=== PATIENT | male | born 1965 | race Caucasian/White ===

== ENCOUNTER 2018-04-10 15:59 | Emergency (ER) | payer MEDICAID, SELFPAY ==
[2018-04-10 15:59] VITALS: BP 155/85; PULSE 109; RESP 16; TEMP 36.6; O2SAT 99; BMI 29.7
--- NOTE | 2018-04-10 16:15 | ED.VISSUMM ---
- ER Visit Summary Date of Service: 04/10/18 Chief Complaint: Right arm pain and swelling. Right finger wound History of Present Illness: The patient is a 52 M who has swelling on the right biceps area. It has been there for 3 days. He denies any specific injury but noted when he was folding close that his right bicep was larger than the left. 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 He states he does feel kind of weak in the right arm but does not want to use it much because he fears he may make it worse. He also has glass in the right hand and right index finger. He has been picking it out with a tweezer for multiple weeks. He states that he was working outside and fell to the ground. He has not had any drainage on any of these areas. Physical Examination: Vital signs reviewed. Right arm exam reveals a right bicep which is larger than the left. It is mildly tender over the distal bicep down into the tendon area. He is weaker on the right. He states he does not want to move it hard because he fears it may tear. There is no fusiform swelling or erythema. He has good distal pulses. He has a wound on the right index finger from picking at it with a tweezers. There is no drainage or erythema. No foreign bodies are seen or felt. Test Results: None performed Emergency Department Course and Treatment: Feel the patient likely has a partial biceps tendon tear. The right bicep does appear to be larger. There is no signs of cellulitis. I do not feel that this is a DVT as he has no diffuse swelling. Is localized right over the bicep muscle. I will place him in a sling. For the glass in the hand, feel x-rays are needed as I do not feel any foreign bodies. He has picked most of the top layer of skin off. I encouraged him not to do this. I will give him some bacitracin to place on these areas. There is no signs of erythema or cellulitis. No signs of tenosynovitis. Patient will be given orthopedic follow-up Treatment Plan: [] Disposition: Discharge Impression: Right partial biceps tendon tear, right finger wound This note was generated with [employer]ation software. It may contain incorrect words, spelling, and punctuation that were not noted in review of the chart prior to signing ED Disposition - Plan for ED Patient: Chief Complaint: Upper Extremity Injury Referrals: Alexis Newby MD [Primary Care Provider] -
--- NOTE | 2018-04-10 16:18 | ED.DEP ---
ED Disposition - Plan for ED Patient: Disposition: Home or Assisted Living Chief Complaint: Upper Extremity Injury Instructions: ED Sling Prescriptions: Bacitracin 500 units TOPICAL BID #20 packet Referrals: Alexis Newby MD [Primary Care Provider] -
== END 2018-04-10 16:42 | disposition home or self-care (01) ==
PROVIDERS: Emergency Provider Emergency Medicine; Family Provider Internal Medicine; PCP Internal Medicine
DX: S46.211A Strain of muscle, fascia and tendon of other parts of biceps, right arm, initial encounter (principal); X58.XXXA Exposure to other specified factors, initial encounter; Y93.9 Activity, unspecified; Y92.9 Unspecified place or not applicable; S60.940A Unspecified superficial injury of right index finger, initial encounter; Z72.0 Tobacco use
CPT/HCPCS: 99283

== ENCOUNTER 2019-02-28 18:36 | Emergency (ER) | payer MEDICAID, SELFPAY ==
[2019-02-28 18:37] VITALS: BP 133/79; PULSE 83; RESP 18; TEMP 36.7; O2SAT 95; BMI 29.7
--- NOTE | 2019-02-28 18:56 | US_ITS ---
HISTORY:RT LOWER LATERAL CALF PAIN AND SWELLING X 4 DAYS US Venous Duplex LE Unilat / Limited # of images including paperwork:19 Comparison: none Technique: Color flow and Doppler analysis of theRight lower extremity Findings: There is satisfactory visualization of the Right common femoral,l femoral, popliteal, and posterior tibial veins. The veins compress satisfactorily and there is satisfactory pulsatility and augmentation noted. US/Venous Duplex Imag/Limited/Uni IMPRESSION: No evidence of deep venous thrombosis in theRight lower extremity at 1938 Reported and signed by: Silvina Gloria DO Electronically Signed: Silvina Gloria DO at 19:37 EDT Tel , Service support ,
--- NOTE | 2019-02-28 19:31 | ED.VISSUMM ---
- ER Visit Summary Date of Service: 02/28/19 Chief Complaint: [Right leg discomfort] History of Present Illness: The patient is a 53 M presents the emergency department discomfort in his right leg out of the ordinary for the last week. Patient states that he always has some leg pain as he has a history of some chronic sciatica and takes gabapentin for it. Patient states that over the last week its just felt different and that been somewhat numb and tingly and feels like his calf is more swollen than usual. He was advised by friends that he could have a blood clot and to get evaluated. He denies any recent travel or surgery. He has no history of DVT. He denies any chest pain or shortness of breath. He denies any injury to the leg.] Physical Examination: [HEENT-PERRLA, EOMI. Cranial nerves II through XII grossly intact. TMs clear. Mucous membranes moist. No adenopathy. Cardiovascular-regular rate and rhythm without murmur or ectopy Lungs-clear to auscultation, chest wall stable without crepitus or subcu emphysema Abdomen-normoactive bowel sounds, soft, nontender, no rebound or rigidity, no peritoneal signs. Extremities-intact ?4, normal range of motion, normal pulses, atraumatic. Right leg-I do not appreciate any significant edema to the leg. No ropes or cords are palpated. Negative Homans sign. There is no erythema or cellulitis noted. Patient has normal popliteal as well as dorsal pedal and posterior tibial pulses. Patient has normal cap refill. Patient has negative straight leg raises. Deep tendon reflexes are plus 2 out of 4 bilaterally at the patella and Achilles.] Test Results: [Venous duplex of the right lower extremity obtained was negative for DVT] Emergency Department Course and Treatment: [None] Treatment Plan: [Patient follow-up with primary care physician 5 to 7 days. Patient advised to return if worsening pain, weakness, or conditions worsen anyway.] Disposition: [Discharged home in stable condition.] Impression: [Right leg pain-etiology uncertain] This note was generated with [employer] software. It may contain incorrect words, spelling, and punctuation that were not noted in review of the chart prior to signing ED Disposition - Plan for ED Patient: Referrals: Alexis Newby MD [Primary Care Provider] -
--- NOTE | 2019-02-28 19:35 | ED.DEP ---
ED Disposition - Plan for ED Patient: Instructions: ED Sciatica Referrals: Alexis Newby MD [Primary Care Provider] - 5-7 Days
[2019-02-28 19:45] VITALS: PULSE 88; RESP 16; O2SAT 98
== END 2019-02-28 19:46 | disposition home or self-care (01) ==
LOC: ED 19:08
PROVIDERS: Emergency Provider Emergency Medicine; Family Provider Internal Medicine; PCP Internal Medicine
DX: M79.604 Pain in right leg (principal); M54.30 Sciatica, unspecified side; I10 Essential (primary) hypertension; Z72.0 Tobacco use
CPT/HCPCS: 93971; 99282

== ENCOUNTER 2019-04-20 12:51 | Observation (INO) | payer MEDICAID, SELFPAY ==
[2019-04-20 12:52] VITALS: BP 145/87; PULSE 112; RESP 24; TEMP 36.8; O2SAT 99; BMI 27.8
--- NOTE | 2019-04-20 13:30 | RAD_ITS ---
STUDY: X-RAY - LEFT KNEE REASON FOR EXAM: Male, 53 years old. Several day history of knee pain. No history of trauma. TECHNIQUE: 4 view(s) of the knee. COMPARISON: None. FINDINGS: Normal visualized distal femur. Normal visualized proximal tibia and fibula. Normal proximal tibiofibular articulation. Normal medial femorotibial compartment. Normal lateral femorotibial compartment. Normal patellofemoral articulation. The soft tissue structures are unremarkable. RAD/Knee 4 or More Views IMPRESSION: Normal x-ray examination of the knee. Electronically Signed: Kev Hopkins, at 14:22 EDT , Service support ,
[2019-04-20] MEDS: HYDROmorphone 1 MG/ML Syringe IV ×2 (13:46→18:24)
[2019-04-20] MEDS: Ondansetron 4 MG/2 ML Vial IV (13:46)
[2019-04-20 14:09] LABS: Absolute Lymphocyte Count 0.77 X10^3/uL (0.83-4.51); Absolute Neutrophil Count 4.3 X10^3/uL (2.0-7.7); Basophil# 0.02 X10^3/uL; Basophil% 0.4 % (0-1); Eosinophil# 0.03 X10^3/uL; Eosinophils% 0.5 % (0-5); Hematocrit 46.1 % (40-54); Hemoglobin 15.7 g/dL (13.0-16.5); Lymphocyte # 0.77 X10^3/ul (4.0); Mean Corp Hgb Conc 34.1 g/dL (32-36); Mean Corpuscular Hgb 30.2 pg (27.0-32.0); Mean Corpuscular Volume 88.7 fL (80-94); Mean Platelet Vol. 9.8 fl (6.2-12.0); Monocyte# 0.34 X10^3/uL; Monocyte% 6.2 % (0-10); NRBC Flagged by Analyzer 0 % (0-5); Neutrophil # 4.34 X10^3/uL (2.7-7.7); Neutrophil % 78.7 % (47-70); Platelet Count 247 K/mm3 (150-450); RBC Distribution Width CV 12.1 % (11.6-14.6); RBC Distribution Width SD 39.4 fl (35.1-43.9); White Blood Count 5.5 K/mm3 (4.4-11.0)
[2019-04-20 14:15] LABS: Erythrocyte Sedimentation Rate 14 mm/hr (0-20)
[2019-04-20 14:21] LABS: Anion Gap 7 (5-15); BUN 18 mg/dL (7-18); BUN/Creat Ratio 19.5 RATIO (10-20); Calcium,Total 8.8 mg/dL (8.5-10.1); Chloride 105 mmol/L (98-107); Creatinine, Serum 0.92 mg/dL (0.70-1.30); EST Glomerular Filtration Rate 91 mL/min (>60); Est Glom Filt Rate - Afr Amer 110 mL/min (>60); Estimated Creatinine Clearance 100.04 ml/min; Glucose 110 mg/dL (74-106); Potassium 3.9 mmol/L (3.5-5.1); Sodium Level 140 mmol/L (136-145)
[2019-04-20 14:28] LABS: Pathologist Comment May follow
[2019-04-20 16:02] LABS: RBC /Synovial Fluid 0.044 10^6/uL (0); Synovial Fld Polynuclear WBC # 0.094 10^3/uL
--- NOTE | 2019-04-20 16:04 | ED.VISSUMM ---
- ER Visit Summary Date of Service: 04/20/19 Chief Complaint: Left knee pain History of Present Illness: The patient is a 53 M with left knee pain for 2 days. Patient feels like his knee is on fire. Pain is severe. Worse with use and weightbearing. He never had anything like this before. He noticed some abrasions to the area and some redness laterally but has no other associated symptoms. Physical Examination: Afebrile and vital signs unremarkable except for heart rate of 112 and respiratory rate of 24. Left knee shows some lateral erythema. It is warm and slightly swollen. Pain with any range of motion. Neurovascular intact distally. No laxity. He has some anterior abrasions. Test Results: X-ray unremarkable. White count normal. BMP unremarkable. ESR 14 and CRP 31. Arthrocentesis results are pending. Emergency Department Course and Treatment: Patient had x-rays, labs, and arthrocentesis. He was evaluated by Dr. Boggs. She did not feel that his exam was consistent with a septic joint, but I am concerned that the patient is having severe pain. At the time of this dictation, I am awaiting results of crystal analysis, culture, and cell count. Dr. Denise will check the results. If it appears to be a septic joint, he will need surgery. If this is gout or just simply cellulitis, Dr. Denise will reassess. I suspect he may need hospitalization for observation for intractable pain. If that is the case, Dr. Boggs may be amenable to observation. Results and disposition are pending. Treatment Plan: As above Disposition: Pending Impression: 1. Left knee pain This note was generated with [employer] software. It may contain incorrect words, spelling, and punctuation that were not noted in review of the chart prior to signing ED Disposition - Plan for ED Patient: Referrals: Alexis Newby MD [Primary Care Provider] -
[2019-04-20 17:47] LABS: Lymph 10 %; Monocyte /Synovial Fluid 14 %; Neutrophil 65 % (0-25); Other Cell /Synovial Fluid 11 %
[2019-04-20 17:48] LABS: AUTO B FLUID DILUENT BKGD CT WBC <0.1 RBC <0.01 (W<.1,R<.01); Source / Synovial Fluid KNEE; Source- Body Fluid SYNOVIAL
[2019-04-20 17:49] LABS: Appearance /Synovial Fluid Cloudy (CLEAR); Body Fluid QC Type(s) BF1Q,BF2Q; Color / Synovial Fluid Red (Pale Yellow)
[2019-04-20 18:26] VITALS: BP 133/82; PULSE 80; RESP 20; O2SAT 95
[2019-04-20 20:17] VITALS: BMI 28.1
[2019-04-20 20:26] VITALS: BMI 28.1
[2019-04-20 20:29] VITALS: BP 140/97; PULSE 97; RESP 16; TEMP 36.6; O2SAT 97
[2019-04-20] MEDS: Cefazolin 2 GM in 0.9% Normal Saline 100 ML IV (21:07)
[2019-04-20] MEDS: Gabapentin 600 MG Tablet PO (21:07)
[2019-04-20] MEDS: Doxycycline 100 MG CAPSULE PO (21:07)
[2019-04-20] MEDS: cycloBENZAPRine HCl 10 MG Tablet PO (22:44)
[2019-04-20] MEDS: Ketorolac 30 MG/ML Syringe IV (23:04)
[2019-04-21 02:31] VITALS: BP 124/84; PULSE 76; RESP 16; TEMP 36.6; O2SAT 100
[2019-04-21] MEDS: Cefazolin 2 GM in 0.9% Normal Saline 100 ML IV ×3 (05:49→21:12)
[2019-04-21] MEDS: Ketorolac 30 MG/ML Syringe IV ×2 (05:50→12:58)
[2019-04-21] MEDS: 0.9% NaCl Peripheral Flush Adult/Peds IV ×3 (05:50→14:08)
[2019-04-21] MEDS: Gabapentin 600 MG Tablet PO ×3 (05:50→21:11)
[2019-04-21 08:45] VITALS: BP 126/73; PULSE 126; RESP 18; TEMP 37.3; O2SAT 97
[2019-04-21] MEDS: cycloBENZAPRine HCl 10 MG Tablet PO (08:54)
[2019-04-21] MEDS: DULoxetine Hcl 30 MG Capsule PO (08:55)
[2019-04-21] MEDS: Doxycycline 100 MG CAPSULE PO ×2 (08:55→21:11)
[2019-04-21] MEDS: hydroCHLOROthiazide 6.25mg TAB 6.25 MG PO (08:56)
[2019-04-21] MEDS: Bisoprolol Fumarate 5 MG Tablet PO (08:56)
[2019-04-21] MEDS: Enoxaparin 40 MG/0.4 ML Syringe SC (08:56)
--- NOTE | 2019-04-21 12:41 | PN_ITS ---
Patient Problems: Active and Suspected Problems Prepatellar bursitis, left knee (Acute) Subjective: Patient seen and examined. Continues to have left knee pain, however he reports this is improved from yesterday. He reports pain is increased with ambulation or bearing weight on left lower extremity. Denies fever, chills. Reports his left knee feels hot. Denies other current complaints. - Physical Exam General: Alert, Oriented x3, Cooperative HEENT: Atraumatic, PERRLA, EOMI, Normocephalic Neck: Supple, No JVD, Negative Carotid Bruits Lungs: Clear to auscultation, Normal air movement Cardiovascular: Regular rate, Regular Rhythm, Normal S1, Normal S2, No murmurs Abdomen: Bowel Sounds Present, Soft, Non Tender, Non-Distended Extremities: No clubbing, No cyanosis, Edema - Left knee Skin: - - Left knee with faint erythema Musculoskeletal: Tenderness - left knee Neurological: Cranial nerves II-XII grossly intact, Neuro grossly intact Psych/Mental Status: Normal Affect, Appropriate Vital Signs Temp Pulse Resp BP Pulse Ox 99.2 F H 126 H 18 126/73 H 97 04/21/19 08:45 04/21/19 08:45 04/21/19 08:45 04/21/19 08:45 04/21/19 08:45 Oxygen Delivery Method Room Air Weight: 201 lb 12.8 oz Body Mass Index (BMI) 28.1 Intake and Output for Last 24 Hours 04/19/19 04/20/19 04/21/19 23:59 23:59 23:59 Intake Total 1050 / 1050 Output Total 900 / 900 Balance 150 / 150 Microbiology Past 72 Hours 04/20/19 14:23 Gram Stain - Final Fluid - Synovial (joint) Body Fluid Culture - Preliminary No growth-Final to follow Laboratory Tests Past 24 Hrs 04/20/19 04/20/19 04/20/19 13:55 13:55 14:23 WBC 5.5 RBC 5.20 Hgb 15.7 Hct 46.1 MCV 88.7 MCH 30.2 MCHC 34.1 RDW Std Deviation 39.4 RDW Coeff of Javier 12.1 Plt Count 247 MPV 9.8 Immature Gran % (Auto) 0.200 Neut % (Auto) 78.7 H Lymph % (Auto) 14.0 L [place] % (Auto) 6.2 Eos % (Auto) 0.5 Baso % (Auto) 0.4 Absolute Neuts (auto) 4.3 Absolute Lymphs (auto) 0.77 L Nucleated RBC % 0 ESR 14 Sodium 140 Potassium 3.9 Chloride 105 Carbon Dioxide 28.0 Anion Gap 7 BUN 18 Creatinine 0.92 Estim Creat Clear Calc 100.04 Est GFR (MDRD) Af Amer 110 Est GFR (MDRD) Non-Af 91 BUN/Creatinine Ratio 19.5 Glucose 110 H Calcium 8.8 C-React Prot Ext Range 31.10 H Fluid Crystals Fluid Crystal Source Fl Crystal Path Review Synovial Source Synovial Color Synovial Appearance Synovial WBC Synovial RBC Synovial Tot Cell Ct Synov Polynuclear WBCs Synov Mononuclear WBCs Synovial Neutrophils Synovial Lymphocytes Synovial Monocytes Synovial Other Cells Synovial Polynuclear % Synovial Mononuclear % Synovial Path Comment Synovial Glucose Cancelled 04/20/19 14:23 WBC RBC Hgb Hct MCV MCH MCHC RDW Std Deviation RDW Coeff of Javier Plt Count MPV Immature Gran % (Auto) Neut % (Auto) Lymph % (Auto) [place] % (Auto) Eos % (Auto) Baso % (Auto) Absolute Neuts (auto) Absolute Lymphs (auto) Nucleated RBC % ESR Sodium Potassium Chloride Carbon Dioxide Anion Gap BUN Creatinine Estim Creat Clear Calc Est GFR (MDRD) Af Amer Est GFR (MDRD) Non-Af BUN/Creatinine Ratio Glucose Calcium C-React Prot Ext Range Fluid Crystals SEE PATH REV Fluid Crystal Source SYNOVIAL Fl Crystal Path Review Will follow Synovial Source KNEE Synovial Color Red Synovial Appearance Cloudy Synovial WBC 0.1740 H Synovial RBC 0.044 H Synovial Tot Cell Ct 0.1770 H Synov Polynuclear WBCs 0.094 Synov Mononuclear WBCs 0.080 Synovial Neutrophils 65 H Synovial Lymphocytes 10 Synovial Monocytes 14 Synovial Other Cells 11 Synovial Polynuclear % 54.0 Synovial Mononuclear % 46.[address] Comment May follow Synovial Glucose Medical Necessity - Tobacco Use Smoking Status: Current every day smoker Tobacco Use: Cigarettes, Vapor Assessment/Plan All Active Problems Prepatellar bursitis, left knee (Acute) 1. Left knee pain-septic joint ruled out. Low suspicion for infectious etiology. Possible prepatellar bursitis versus gout/inflammatory causes? Dr. Boggs following, aspiration completed in ER. Synovial fluid shows WBC 0.174. Culture shows very rare gram-positive cocci. 1+ WBC. Intermittent low- grade fever. No leukocytosis. Patient reports pain is improved however continues to have significant pain with ambulation. Continue IV cefazolin and p.o. doxycycline empirically. Scheduled IV Toradol. PRN pain regimen. PT/OT. Anticipate discharge home tomorrow if continued improvement. 2. Hypertension-stable, continue home medication regimen. 3. Depression-continue home Cymbalta regimen. DVT prophylaxis-Lovenox subcu This patient was seen by AYO Browning under the supervision of Dr. Deras.
[2019-04-21 13:31] LABS: Uric Acid 4.2 mg/dL (3.5-7.2)
--- NOTE | 2019-04-21 13:38 | CON.PCM_ITS ---
Reason for Consult Date of Consultation: 04/20/19 Reason for Consultation: left knee pain History of Present Illness: The patient is a 53 year old M states picked rock out of inferior knee and had increaseing redness at lateral knee. Also complains of intermittent locking of left knee with flexion/ weight bearing. No history of gout, no fever, chills or other constitutional symptoms. states more pain in left knee so came to er for evaluation and ER doc aspirated knee. per er doc, 4cc normal synovial fluid from medial knee aspirated and sent for cell counts, gram stain, etc. ortho asked to evaluate pt in er for possible septic knee.[] Past Medical History Allergies No Known Allergies Allergy (Verified 04/20/19 12:51) Home Medications: Ambulatory Orders Medication Instructions Recorded cycloBENZAPRine HCl [Flexeril] 10 mg PO TID PRN #20 tablet 05/11/17 Bisoprl/Hctz 5 - 6.25 mg PO DAILY 04/20/19 Duloxetine Hcl [Cymbalta] 30 mg PO DAILY 04/20/19 Gabapentin [Neurontin] 600 mg PO TID 04/20/19 Cefadroxil Hydrate [Duricef] 1,000 mg PO DAILY #10 cap 04/22/19 Ketorolac [Toradol] 10 mg PO Q4H PRN #20 tab 04/22/19 Smoking Status: Current every day smoker Tobacco Use: Cigarettes, Vapor Review of Systems Constitutional: Denies: Chills, Fever, Weight Change HEENT: Denies: Head Aches, Sinus Congestion, Sinus Drainage Cardiovascular: Denies: Chest Pain, Palpitations Respiratory: Denies: Cough, Shortness of breath at rest, Sputum production Gastrointestinal: Denies: Abdominal Pain, Nausea, Vomiting Genitourinary: Denies: Dysuria Musculoskeletal: Reports: Joint Pain. Denies: Joint Tenderness Skin: Denies: Rash, Wounds Neurological: Denies: Numbness, Tingling, Focal weakness Psychiatric: Denies: Anxiety, Depression, Homicidal Ideations, Suicidal Ideations Hematologic/ Lymphatic: Denies: Easy Bruising, Easy Bleeding - Physical Exam General: Alert, Oriented x3, Cooperative HEENT: Atraumatic, PERRLA, EOMI, Normocephalic Neck: Supple, No JVD, Negative Carotid Bruits Lungs: Clear to auscultation, Normal air movement Cardiovascular: Regular rate, No murmurs Abdomen: Bowel Sounds Present, Soft, Non Tender Extremities: No edema, Capillary Refill Less than 3 Seconds Skin: No rashes, No breakdown Musculoskeletal: Tenderness - lat joint line, slight superficial erythema laterally, no effusion at knee joint, Neurological: Cranial nerves II-XII grossly intact Psych/Mental Status: Normal Affect, Appropriate Vital Signs Temp Pulse Resp BP Pulse Ox 99.2 F H 126 H 18 126/73 H 97 04/21/19 08:45 04/21/19 08:45 04/21/19 08:45 04/21/19 08:45 04/21/19 08:45 Oxygen Delivery Method Room Air Weight: 201 lb 12.8 oz Body Mass Index (BMI) 28.1 Intake and Output for Last 24 Hours 04/19/19 04/20/19 04/21/19 23:59 23:59 23:59 Intake Total 1050 / 1050 Output Total 900 / 900 Balance 150 / 150 Microbiology Past 72 Hours 04/20/19 14:23 Gram Stain - Final Fluid - Synovial (joint) Body Fluid Culture - Preliminary No growth-Final to follow Laboratory Tests Past 24 Hrs 04/20/19 04/20/19 04/20/19 13:55 13:55 14:23 WBC 5.5 RBC 5.20 Hgb 15.7 Hct 46.1 MCV 88.7 MCH 30.2 MCHC 34.1 RDW Std Deviation 39.4 RDW Coeff of Javier 12.1 Plt Count 247 MPV 9.8 Immature Gran % (Auto) 0.200 Neut % (Auto) 78.7 H Lymph % (Auto) 14.0 L [place] % (Auto) 6.2 Eos % (Auto) 0.5 Baso % (Auto) 0.4 Absolute Neuts (auto) 4.3 Absolute Lymphs (auto) 0.77 L Nucleated RBC % 0 ESR 14 Sodium 140 Potassium 3.9 Chloride 105 Carbon Dioxide 28.0 Anion Gap 7 BUN 18 Creatinine 0.92 Estim Creat Clear Calc 100.04 Est GFR (MDRD) Af Amer 110 Est GFR (MDRD) Non-Af 91 BUN/Creatinine Ratio 19.5 Glucose 110 H Uric Acid Calcium 8.8 C-React Prot Ext Range 31.10 H Fluid Crystals Fluid Crystal Source Fl Crystal Path Review Synovial Source Synovial Color Synovial Appearance Synovial WBC Synovial RBC Synovial Tot Cell Ct Synov Polynuclear WBCs Synov Mononuclear WBCs Synovial Neutrophils Synovial Lymphocytes Synovial Monocytes Synovial Other Cells Synovial Polynuclear % Synovial Mononuclear % Synovial Path Comment Synovial Glucose Cancelled 04/20/19 04/21/19 14:23 13:05 WBC RBC Hgb Hct MCV MCH MCHC RDW Std Deviation RDW Coeff of Javier Plt Count MPV Immature Gran % (Auto) Neut % (Auto) Lymph % (Auto) [place] % (Auto) Eos % (Auto) Baso % (Auto) Absolute Neuts (auto) Absolute Lymphs (auto) Nucleated RBC % ESR Sodium Potassium Chloride Carbon Dioxide Anion Gap BUN Creatinine Estim Creat Clear Calc Est GFR (MDRD) Af Amer Est GFR (MDRD) Non-Af BUN/Creatinine Ratio Glucose Uric Acid 4.2 Calcium C-React Prot Ext Range Fluid Crystals SEE PATH REV Fluid Crystal Source SYNOVIAL Fl Crystal Path Review Will follow Synovial Source KNEE Synovial Color Red Synovial Appearance Cloudy Synovial WBC 0.1740 H Synovial RBC 0.044 H Synovial Tot Cell Ct 0.1770 H Synov Polynuclear WBCs 0.094 Synov Mononuclear WBCs 0.080 Synovial Neutrophils 65 H Synovial Lymphocytes 10 Synovial Monocytes 14 Synovial Other Cells 11 Synovial Polynuclear % 54.0 Synovial Mononuclear % 46.[address]ovial [address] Comment May follow Synovial Glucose Assessment/Plan All Active Problems Prepatellar bursitis, left knee (Acute) left knee pain cellulitis may need mri to evaluate for possible intraarticular derangement no obvious signs/symptoms of septic knee- cell count not consistent with septic joint follow peripherallly call with concerns [phone]
--- NOTE | 2019-04-21 13:57 | HP.PCM_ITS ---
Problem List (1) Prepatellar bursitis, left knee Status: Acute History of Present Illness Date of Admission: 04/20/19 Chief Complaint: Left knee pain and redness The patient is a 53 year old M who presents to the emergency room because of low 2-day history of pain and redness of the left knee. Patient remembers kneeling on the gravel and dirt about a day prior to onset of symptoms. Pain is constant and worsened by ambulation. Uncertain if the whole knee itself is swelling per se. He denies any fever or chills. He denies any other sort of trauma the emergency room left knee was aspirated. Features not quite suggestive of infection. [] Past Medical History Allergies No Known Allergies Allergy (Verified 04/20/19 12:51) Home Medications: Ambulatory Orders Medication Instructions Recorded cycloBENZAPRine HCl [Flexeril] 10 mg PO TID PRN #20 tablet 05/11/17 Bisoprl/Hctz 5 - 6.25 mg PO DAILY 04/20/19 Duloxetine Hcl [Cymbalta] 30 mg PO DAILY 04/20/19 Gabapentin [Neurontin] 600 mg PO TID 04/20/19 Smoking Status: Current every day smoker Tobacco Use: Cigarettes, Vapor Review of Systems Constitutional: Denies: Anorexia, Chills, Fever, Night Sweats Eyes: Denies: Blurred vision HEENT: Denies: Eye Pain Cardiovascular: Denies: Chest Pain, Chest Pressure Respiratory: Denies: Pleuritic Pain Comment: All other systems were reviewed and essentially negative. VTE Information - Inpt Only VTE Present on Admission: No VTE Mechan Device Prophylaxis: None VTE Pharm Prophylaxis ordered?: No Reason prophylaxis not ordered:: Treatment Not Indicated Patient Problems: Active and Suspected Problems Prepatellar bursitis, left knee (Acute) - Physical Exam General: Alert, Oriented x3, Cooperative, - - in some painful distress. Not acutely ill looking HEENT: Atraumatic, PERRLA, Normocephalic Oral: Moist Mucosa Neck: Supple Lungs: Clear to auscultation Cardiovascular: Regular rate, Regular Rhythm, Normal S1, Normal S2 Abdomen: Soft Extremities: - - Anterior aspect of the left knee slightly red, swelling and tender. Knee joint itself does not appear swollen. There is limitation of range of movement by pain. Slight warmth Skin: No rashes Musculoskeletal: No Tenderness to Palpation of Joints or Extremities Neurological: Cranial nerves II-XII grossly intact, Neuro grossly intact, Motor Exam 5/5 strength throughout Psych/Mental Status: Normal Affect, Appropriate Vital Signs Temp Pulse Resp BP Pulse Ox 99.2 F H 126 H 18 126/73 H 97 04/21/19 08:45 04/21/19 08:45 04/21/19 08:45 04/21/19 08:45 04/21/19 08:45 Oxygen Delivery Method Room Air Weight: 91.535 kg Body Mass Index (BMI) 28.1 Intake and Output for Last 24 Hours 04/19/19 04/20/19 04/21/19 23:59 23:59 23:59 Intake Total 1050 / 1050 Output Total 900 / 900 Balance 150 / 150 Microbiology Past 72 Hours 04/20/19 14:23 Gram Stain - Final Fluid - Synovial (joint) Body Fluid Culture - Preliminary No growth-Final to follow Laboratory Tests Past 24 Hrs 04/20/19 04/20/19 04/20/19 13:55 13:55 14:23 WBC 5.5 RBC 5.20 Hgb 15.7 Hct 46.1 MCV 88.7 MCH 30.2 MCHC 34.1 RDW Std Deviation 39.4 RDW Coeff of Javier 12.1 Plt Count 247 MPV 9.8 Immature Gran % (Auto) 0.200 Neut % (Auto) 78.7 H Lymph % (Auto) 14.0 L [place] % (Auto) 6.2 Eos % (Auto) 0.5 Baso % (Auto) 0.4 Absolute Neuts (auto) 4.3 Absolute Lymphs (auto) 0.77 L Nucleated RBC % 0 ESR 14 Sodium 140 Potassium 3.9 Chloride 105 Carbon Dioxide 28.0 Anion Gap 7 BUN 18 Creatinine 0.92 Estim Creat Clear Calc 100.04 Est GFR (MDRD) Af Amer 110 Est GFR (MDRD) Non-Af 91 BUN/Creatinine Ratio 19.5 Glucose 110 H Uric Acid Calcium 8.8 C-React Prot Ext Range 31.10 H Fluid Crystals Fluid Crystal Source Fl Crystal Path Review Synovial Source Synovial Color Synovial Appearance Synovial WBC Synovial RBC Synovial Tot Cell Ct Synov Polynuclear WBCs Synov Mononuclear WBCs Synovial Neutrophils Synovial Lymphocytes Synovial Monocytes Synovial Other Cells Synovial Polynuclear % Synovial Mononuclear % Synovial Path Comment Synovial Glucose Cancelled 04/20/19 04/21/19 14:23 13:05 WBC RBC Hgb Hct MCV MCH MCHC RDW Std Deviation RDW Coeff of Javier Plt Count MPV Immature Gran % (Auto) Neut % (Auto) Lymph % (Auto) [place] % (Auto) Eos % (Auto) Baso % (Auto) Absolute Neuts (auto) Absolute Lymphs (auto) Nucleated RBC % ESR Sodium Potassium Chloride Carbon Dioxide Anion Gap BUN Creatinine Estim Creat Clear Calc Est GFR (MDRD) Af Amer Est GFR (MDRD) Non-Af BUN/Creatinine Ratio Glucose Uric Acid 4.2 Calcium C-React Prot Ext Range Fluid Crystals SEE PATH REV Fluid Crystal Source SYNOVIAL Fl Crystal Path Review Will follow Synovial Source KNEE Synovial Color Red Synovial Appearance Cloudy Synovial WBC 0.1740 H Synovial RBC 0.[address] H Synovial Tot Cell Ct 0.1770 H Synov Polynuclear WBCs 0.094 Synov Mononuclear WBCs 0.080 Synovial Neutrophils 65 H Synovial Lymphocytes 10 Synovial Monocytes 14 Synovial Other Cells 11 Synovial Polynuclear % 54.0 Synovial Mononuclear % 46.[address] Synovial Path Comment May follow Synovial Glucose Assessment/Plan All Active Problems Prepatellar bursitis, left knee (Acute) 1. Prepatellar bursitis. I doubt if this is of infectious etiology. Will treat empirically with IV antibiotics. Start on IV NSAIDs. Observe for 24 to 48 hours. If stable then allow to be discharged home on oral NSAIDs. Follow-up on joint fluid microbiological studies. Code Visit Inpatient E&M: 44262 Init Hosp L3
[2019-04-21 14:12] VITALS: BP 115/62; PULSE 71; RESP 18; TEMP 37; O2SAT 97
[2019-04-21] MEDS: HYDROcodone Bitartrate/Apap 5/325 Tablet PO (17:07)
[2019-04-21] MEDS: Ibuprofen 600 MG Tablet PO (19:25)
[2019-04-21 20:10] VITALS: BP 127/81; PULSE 71; RESP 18; TEMP 36.7; O2SAT 93
[2019-04-21] MEDS: oxyCODONE 5 MG Tablet 10 MG PO (21:11)
[2019-04-22] MEDS: oxyCODONE 5 MG Tablet 10 MG PO ×2 (02:04→07:15)
[2019-04-22 02:05] VITALS: BP 119/80; PULSE 59; RESP 18; TEMP 36.3; O2SAT 95
[2019-04-22] MEDS: Gabapentin 600 MG Tablet PO (05:28)
[2019-04-22] MEDS: Cefazolin 2 GM in 0.9% Normal Saline 100 ML IV (05:28)
[2019-04-22 06:04] LABS: Absolute Lymphocyte Count 1.23 X10^3/uL (0.83-4.51); Absolute Neutrophil Count 2.1 X10^3/uL (2.0-7.7); Basophil# 0.02 X10^3/uL; Basophil% 0.5 % (0-1); Eosinophil# 0.07 X10^3/uL; Eosinophils% 1.9 % (0-5); Hematocrit 42.6 % (40-54); Lymphocyte # 1.23 X10^3/ul (4.0); Lymphocyte % 32.6 % (19-41); Mean Corp Hgb Conc 32.9 g/dL (32-36); Mean Corpuscular Hgb 29.9 pg (27.0-32.0); Mean Platelet Vol. 9.6 fl (6.2-12.0); Monocyte# 0.38 X10^3/uL; Monocyte% 10.1 % (0-10); NRBC Flagged by Analyzer 0 % (0-5); Neutrophil # 2.06 X10^3/uL (2.7-7.7); Neutrophil % 54.6 % (47-70); Platelet Count 217 K/mm3 (150-450); RBC Distribution Width CV 12.1 % (11.6-14.6); RBC Distribution Width SD 40.4 fl (35.1-43.9); Red Blood Count 4.68 M/mm3 (4.6-6.2); White Blood Count 3.8 K/mm3 (4.4-11.0)
[2019-04-22] MEDS: DULoxetine Hcl 30 MG Capsule PO (10:22)
[2019-04-22] MEDS: Doxycycline 100 MG CAPSULE PO (10:22)
[2019-04-22] MEDS: Enoxaparin 40 MG/0.4 ML Syringe SC (10:22)
[2019-04-22] MEDS: Bisoprolol Fumarate 5 MG Tablet PO (10:22)
[2019-04-22] MEDS: hydroCHLOROthiazide 6.25mg TAB 6.25 MG PO (10:22)
[2019-04-22] MEDS: HYDROcodone Bitartrate/Apap 5/325 Tablet PO (10:25)
[2019-04-22] MEDS: cycloBENZAPRine HCl 10 MG Tablet PO (10:26)
[2019-04-22 10:32] VITALS: BP 125/69; PULSE 61; RESP 18; TEMP 36.6; O2SAT 98
--- NOTE | 2019-04-22 10:37 | PCM.DC ---
- Discharge Diagnoses Current Active Problems: Current Active and Chronic Problems Suspected left knee cellulitis You will use the following diet at home:: No restrictions Discharge Activity: Return to Normal Activity Call your doctor if you observe: Fever of 101 or Higher, Uncontrolled pain Additional Instructions: You may use Tylenol 1000 mg every 8 hours as needed for pain. Do not exceed 3000 mg within 24 hours. Do not take other NSAIDs (advil, Aleve, ibuprofen, etc.) while taking Toradol. If symptoms worsen or left knee pain not improved, follow-up with Dr. Boggs. Allergies/Adverse Reactions: Allergies No Known Allergies Allergy (Verified 04/20/19 12:51) Medications to take at Discharge cycloBENZAPRine HCl [Flexeril] 10 mg PO TID PRN #20 tablet 05/11/17 Bisoprl/Hctz 5 - 6.25 mg PO DAILY 04/20/19 Duloxetine Hcl [Cymbalta] 30 mg PO DAILY 04/20/19 Gabapentin [Neurontin] 600 mg PO TID 04/20/19 Cefadroxil Hydrate [Duricef] 1,000 mg PO DAILY #10 cap 04/22/19 Ketorolac [Toradol] 10 mg PO Q4H PRN #20 tab 04/22/19 The following prescriptions were given: Cefadroxil Hydrate [Duricef] 1,000 mg PO DAILY #10 cap Transmission Status: Pending to [facility] Ketorolac [Toradol] 10 mg PO Q4H PRN #20 tab PRN Reason: Pain Transmission Status: Pending to [facility] Primary Care Physician: Alexis Newby MD [Primary Care Provider] - Please follow up with your Primary Care Physician in: 1 Week Test Results: Test results from this visit will be discussed in further detail at your follow-up appointment, if applicable. Please Follow Up With: Jennifer Boggs DO When: 3-5 days Proposed Discharge Date: 04/22/19
--- NOTE | 2019-04-22 10:50 | DS.PCM_ITS ---
Discharge Date and Diagnosis Date of Admission: 04/20/19 Date of Discharge: 04/22/19 - Primary Discharge Diagnosis Active and Suspected Problems 1. Left knee pain-septic joint ruled out. Suspect secondary to cellulitis with possible underlying prepatellar bursitis vs other inflammatory etiology. 2. Hypertension 3. Depression Hospital Course and Treatment Imaging Results: Diagnostic Data Knee X-Ray 04/20/19 13:30 IMPRESSION: Normal x-ray examination of the knee. Electronically Signed: Kev Hopkins, at 14:22 EDT , Service support , Dr. Boggs-Ortho Operations: None Procedures: None, - - Left knee aspiration Summary of Care Provided: The patient is a 53 year old M admitted 04/20/2019 due to left knee pain and redness. 1. Left knee pain-septic joint ruled out. Suspect secondary to cellulitis with possible underlying prepatellar bursitis vs other inflammatory etiology. Dr. Boggs consulted during admission, aspiration completed in ER. Synovial fluid shows WBC 0.174. Fluid not consistent with septic joint. Uric acid 4.2. Culture shows very rare gram-positive cocci. 1+ WBC. No further low-grade fever. No leukocytosis. Patient able to ambulate without difficulty, continues to complain of left knee pain. Discharged on Duricef 1000 mg for 10 days. Patient reports Toradol was significantly effective for his pain and [place]/oxycodone did not work. Given prescription for as needed Toradol at discharge and instructed he may use Tylenol as well for pain. He was instructed not to use other NSAIDs while using Toradol. If he continues to have significant pain, follow-up with Dr. Boggs as outpatient. He may need MRI a s outpatient if pain is not resolved upon completion of antibiotic therapy. Follow-up with primary care provider in 1 week. 2. Hypertension-stable, continue home medication regimen. 3. Depression-continue home Cymbalta regimen. General: Alert, Oriented x3, Cooperative HEENT: Atraumatic, PERRLA, EOMI, Normocephalic Neck: Supple, No JVD, Negative Carotid Bruits Lungs: Clear to auscultation, Normal air movement Cardiovascular: Regular rate, Regular Rhythm, Normal S1, Normal S2, No murmurs Abdomen: Bowel Sounds Present, Soft, Non Tender, Non-Distended Extremities: No clubbing, No cyanosis, Edema, minimal - Left knee Skin: - - Left knee with faint erythema Musculoskeletal: Tenderness - left knee Neurological: Cranial nerves II-XII grossly intact, Neuro grossly intact Psych/Mental Status: Normal Affect, Appropriate Patient seen and examined prior to discharge. Physical assessment as noted above. Patient is stable for discharge with follow up recommendations as noted above. This patient was seen by AYO Browning under the supervision of Dr. Deras. - Physical Exam Vital Signs Temp Pulse Resp BP Pulse Ox 97.9 F 61 18 125/69 H 98 04/22/19 10:32 04/22/19 10:32 04/22/19 10:32 04/22/19 10:32 04/22/19 10:32 Oxygen Delivery Method Room Air Weight: 201 lb 12.8 oz Body Mass Index (BMI) 28.1 Intake and Output for Last 24 Hours 04/20/19 04/21/19 04/22/19 23:59 23:59 23:59 Intake Total 4247 / 4247 356 / 356 Output Total 2275 / 2275 600 / 600 Balance 1971 / 1971 -244 / -244 Microbiology Past 72 Hours 04/20/19 14:23 Gram Stain - Final Fluid - Synovial (joint) Body Fluid Culture - Preliminary No growth-Final to follow Anaerobic Culture - Preliminary No growth in 48 hours. Laboratory Tests Past 24 Hrs 04/21/19 04/22/19 13:05 05:45 WBC 3.8 L RBC 4.68 Hgb 14.0 Hct 42.6 MCV 91.0 MCH 29.9 MCHC 32.9 RDW Std Deviation 40.4 RDW Coeff of Javier 12.1 Plt Count 217 MPV 9.6 Immature Gran % (Auto) 0.300 Neut % (Auto) 54.6 Lymph % (Auto) 32.6 [place] % (Auto) 10.1 H Eos % (Auto) 1.9 Baso % (Auto) 0.5 Absolute Neuts (auto) 2.1 Absolute Lymphs (auto) 1.23 Nucleated RBC % 0 Uric Acid 4.2 Discharge Diet: No Restrictions Discharge Activity: Return to Normal Activity Call your doctor if you observe: Fever of 101 or Higher, Uncontrolled pain Home Medications: Medications to take at Discharge cycloBENZAPRine HCl [Flexeril] 10 mg PO TID PRN #20 tablet 05/11/17 Bisoprl/Hctz 5 - 6.25 mg PO DAILY 04/20/19 Duloxetine Hcl [Cymbalta] 30 mg PO DAILY 04/20/19 Gabapentin [Neurontin] 600 mg PO TID 04/20/19 Cefadroxil Hydrate [Duricef] 1,000 mg PO DAILY #10 cap 04/22/19 Ketorolac [Toradol] 10 mg PO Q4H PRN #20 tab 04/22/19 Following Prescrptions Were Given to Patient: Cefadroxil Hydrate [Duricef] 1,000 mg PO DAILY #10 cap Transmission Status: Pending to [facility] Ketorolac [Toradol] 10 mg PO Q4H PRN #20 tab PRN Reason: Pain Transmission Status: [facility] Primary Care Physician: Alexis Newby MD [Primary Care Provider] - Please follow up with your Primary Care Physician in: 1 Week Please Follow Up With: Jennifer Boggs DO When: 3-5 days Disposition: Home Minutes spent on discharge:: 35 Patient Condition:: Stable Medical Necessity - Tobacco Use Smoking Status: Current every day smoker Tobacco Use: Cigarettes, Vapor Meaningful Use Info Meaningful Use Diagnoses (Choose all that apply): None applicable
[2019-04-22 13:39] LABS: Pathologist Review Reviewed
== END 2019-04-22 13:03 | disposition home or self-care (01) ==
LOC: ED 13:36 → MS3 04-21 06:01
PROVIDERS: Nurse Practitioner Family; Admitting Provider Internal Medicine; Emergency Provider Emergency Medicine; Family Provider Internal Medicine; PCP Internal Medicine; Referring Provider Internal Medicine; Visit Provider Internal Medicine
DX: L03.116 Cellulitis of left lower limb (principal); S80.212A Abrasion, left knee, initial encounter; X58.XXXA Exposure to other specified factors, initial encounter; Y92.9 Unspecified place or not applicable; M70.42 Prepatellar bursitis, left knee; I10 Essential (primary) hypertension; F32.9 Major depressive disorder, single episode, unspecified; Z79.899 Other long term (current) drug therapy; F17.210 Nicotine dependence, cigarettes, uncomplicated
CPT/HCPCS: 20610; 36415; 73564; 80048; 84550; 85025; 85652; 86140; 87070; 87075; 87205; 89050; 89051; 89060; 96365; 96366; 96367; 96375; 96376; 97161; 97166; 97530; 99218; 99284; 99406; J7050; A4216; G0378; J2405

== ENCOUNTER → 2020-06-04 10:15 | Outpatient (CLI) | payer MEDICARE, MEDICAID, SELFPAY | PROVIDERS: PCP Internal Medicine; Referring Provider Clinical Nurse Specialist; Visit Provider Clinical Nurse Specialist | DX: Z20.828 Contact with and (suspected) exposure to other viral communicable diseases (principal) | CPT/HCPCS: 87635; C9803; U0003 ==

== ENCOUNTER 2020-06-14 16:55 | Emergency (ER) | payer MEDICARE, MEDICAID, SELFPAY ==
[2020-06-14 16:56] VITALS: BP 137/82; PULSE 86; RESP 14; TEMP 36.9; O2SAT 98; BMI 29.7
--- NOTE | 2020-06-14 17:18 | CT_ITS ---
STUDY: CT ABDOMEN AND PELVIS WITHOUT CONTRAST REASON FOR EXAM: Male, 54 years old. LEFT FLANK PAIN HX-KIDNEY STONES RADIATION DOSAGE (If Supplied By Facility): CTDIvol = ( 11.34 ) mGy, DLP = ( 595.15 ) mGycm TECHNIQUE: Transaxial images were obtained from the dome of the diaphragm to the symphysis pubis without oral contrast, and without intravenous contrast. Sagittal and coronal images were reconstructed. Individualized dose optimization techniques were used for this CT. COMPARISON: None. FINDINGS: Limited views through the lower chest show small focal areas of pulmonary opacity in the lateral right lung base, posterior left lung base, both inferior lung bases. Findings could represent focal areas of scarring or mild infiltrates. Normal liver. The gallbladder is contracted. Normal spleen. Normal pancreas. Normal bilateral adrenal glands. Normal right kidney. Normal left kidney. Evaluation of the GI tract is limited by absence of oral contrast. Cannot exclude stomach wall thickening. No dilated loops of bowel or evidence for obstruction. Cannot exclude segmental thickening of the cervantes of the small or large bowel. Cannot exclude enteritis or colitis. Moderate diffuse fecal retention. Appendix within normal limits. Normal abdominal aorta. Normal inferior vena cava. Normal retroperitoneum. Normal urinary bladder. Normal abdominal wall. There are diffuse degenerative changes of the visualized lumbar spine. CT/Abdomen/Pelvis without Cont IMPRESSION: No definite acute or significant abnormality seen. Electronically Signed: Eric Pierson MD at 17:52 EDT , Service support ,
--- NOTE | 2020-06-14 17:19 | ED.VIS.GEN ---
History of Present Illness Chief Complaint: Back Informant: Patient Narrative: Patient is a 54-year-old male who presents to the emergency department for back pain. He does not know aggravating or relieving factors. No known injury. It is mostly on the right side but goes go to the left side as well. He does have a history of kidney stones and believe that this is somewhat similar. He denies any changes in urination. No hematuria. Denies any fevers or chills. No abdominal pain associated with this. No chest pain or shortness of breath. Of note, he did test positive for COVID multiple weeks ago. He does have some mild shortness of breath but not past his baseline. He also has a chronic cough which is no worse than normal. Denies any change in bowel habits. He has been taking his gabapentin Flexeril which does occasionally give him some relief. Currently rates the pain as a 5 out of 10 and sharp. He denies any radiation down his legs. No saddle anesthesia. No urinary/bowel incontinence/retention. Past Medical History - Allergies and Home Meds Allergies/Adverse Reactions: Allergies No Known Allergies Allergy (Verified 06/14/20 17:10) Primary Care Physician: Alexis Newby MD [Primary Care Provider] - 3-5 Days Prior records reviewed: Yes Smoking Status: Current every day smoker Alcohol: Occasional Drugs: None Review of Systems All systems negative except as indicated General: Denies: Chills, Fever, Sweats Eyes: Denies: Visual changes - bilaterally, Diplopia ENT: Denies: Rhinorrhea, Sore throat Cardiovascular: Denies: Chest pain, Palpitations Respiratory: Reports: Dyspnea - At baseline, Cough. Denies: Dyspnea on exertion Gastrointestinal: Denies: Abdominal pain, Nausea, Vomiting, Diarrhea Genitourinary: Denies: Dysuria, Hematuria, Frequency Musculoskeletal: Reports: Back pain. Denies: Extremity Pain Skin: Denies: Rash, Wounds Neurological: Denies: Headache, Weakness, Numbness Physical Exam Vital Signs/Narrative: Vital Signs Temp Pulse Resp BP Pulse Ox 06/14/20 16:56 98.5 F 86 14 137/82 H 98 Inital Vital Signs reviewed: Yes General: Well nourished, Well developed, No Acute Distress Head: Normocephalic, Atraumatic Eyes: Perrl, EOMI ENT: Moist mucous membranes, No rhinorrhea Neck: Supple, Nontender Cardiovascular: Regular rate, Regular rhythm, No murmurs Respiratory: No distress, CTA bilaterally, Chest nontender Abdomen: Soft, Nontender, Nondistended, Normal bowel sounds Back: Nontender, Normal Inspection. Negative for: CVA tenderness, Spinal tenderness Extremities: Nontender, No edema Skin: Normal color, No rash Neurological: Alert, Oriented x3, Cranial nerves II-XII grossly intact, Normal Strength, Normal Sensation Psychological: Normal affect, Normal Mood Diagnostic/Tx/Re-eval - Medical Decision Making Patient presents to the ED for lower back pain. He was sent in by his PCP to evaluate for kidney stone. Will check a CT scan of the abdomen/pelvis and urinalysis. We will give a dose of Toradol for symptomatic relief. Otherwise physical exam is benign. Does not appear any acute distress. Vital signs within normal limits. CT scan did not reveal any acute intra-abdominal/pelvic abnormality. No evidence of kidney stone. Urine did not show any evidence of infection. The dose of Toradol took away his pain completely. He does feel comfortable going home at this time. Warning signs and symptoms for which to return to the ED are reviewed with him. He understands and is agreeable this plan. Patient discharged home in stable condition. He otherwise is to follow-up with his PCP. ED Disposition - Plan for ED Patient: Disposition: Home or Assisted Living Diagnosis: Low back pain Instructions: ED Back Pain Acute or Chronic Referrals: Alexis Newby MD [Primary Care Provider] - 3-5 Days
[2020-06-14] MEDS: Ketorolac 30 MG/ML Syringe IM (17:24)
[2020-06-14 18:00] LABS: Bacteria 0 SEEN /hpf (None Seen); Mucous, Urine 0 SEEN /hpf (<or=2+); Red Blood Cells-Urine 0 SEEN /hpf (0-5); White Blood Cells 0 SEEN /hpf (0-5)
[2020-06-14 18:05] LABS: Color, Urine Yellow (Yellow); Glucose, Dipstick Normal (Normal); Ketone-Dipstick Negative (Negative); Leukocyte Esterase-Dipstick Negative /ul (Negative); Nitrite-Dipstick Negative (Negative); Occult Blood-Urine Negative /ul (Negative); Protein-Dipstick Negative (Negative); Urine Bilirubin Dipstick Negative (Negative); Urine Clarity Clear (Clear); Urine Urobilinogen Normal (Normal)
[2020-06-14 18:22] LABS: Amorphous Sediment 1+ PHOS; Squamous Epithelial Cells - UA 0-5 SEEN /hpf (0-5)
== END 2020-06-14 18:29 | disposition home or self-care (01) ==
PROVIDERS: Emergency Provider Emergency Medicine; PCP Internal Medicine
DX: M54.5 Low back pain (principal); F17.200 Nicotine dependence, unspecified, uncomplicated; Z87.442 Personal history of urinary calculi
CPT/HCPCS: 74176; 81001; 87086; 96372; 99282

== ENCOUNTER 2020-07-10 21:52 | Emergency (ER) | payer MEDICARE, MEDICAID, SELFPAY ==
[2020-07-10 21:53] VITALS: BP 116/102; PULSE 82; RESP 16; TEMP 36.2; O2SAT 99; BMI 30.2
[2020-07-10 22:11] VITALS: BP 136/82; PULSE 82; RESP 16; TEMP 36.2; O2SAT 99
--- NOTE | 2020-07-10 22:47 | ED.VIS.GEN ---
History of Present Illness Chief Complaint: Cellulitis Informant: Patient Onset: Days - 4 to 5 days Context: Gradual Onset Current Severity: Moderate Maximum Severity: Moderate Narrative: Patient presents secondary to concern for skin infection in the right upper arm. He states he noted a red lesion on the medial surface of his right upper arm for 5 days ago. The area is now more painful and red. He is not sure if he may have been bitten by something. He is right-handed. He denies any known injury to the area. - Past Medical History (1) Hepatitis C Status: Chronic Past Medical History - Allergies and Home Meds Allergies/Adverse Reactions: Allergies No Known Allergies Allergy (Verified 07/10/20 21:54) Primary Care Physician: Alexis Newby MD [Primary Care Provider] - 1 Week Prior records reviewed: Yes Smoking Status: Current every day smoker Review of Systems General: Denies: Chills, Fever Eyes: Denies: Visual changes - bilaterally ENT: Denies: Bilateral ear pain Cardiovascular: Denies: Chest pain Respiratory: Denies: Dyspnea, Cough Gastrointestinal: Denies: Abdominal pain, Nausea, Vomiting, Diarrhea Genitourinary: Denies: Dysuria Musculoskeletal: Reports: Swelling, Extremity Pain Skin: Reports: Rash Neurological: Denies: Headache Hematologic: Denies: Easy bruising, Easy bleeding Allergy: Denies: Uticaria Physical Exam Vital Signs/Narrative: Vital Signs Temp Pulse Resp BP Pulse Ox 07/10/20 22:11 97.1 F L 82 16 136/82 H 99 07/10/20 21:53 97.1 F L 82 16 116/102 H 99 Inital Vital Signs reviewed: Yes General: Well nourished, Well developed Head: Normocephalic ENT: Moist mucous membranes Neck: Supple Cardiovascular: Regular rate, Regular rhythm Respiratory: No distress, CTA bilaterally Abdomen: Soft, Nontender Extremities: - - Area of erythema and firmness consistent with superficial thrombophlebitis along the inner surface of the right upper arm. He does have an area of mild erythema over the forearm more consistent with cellulitis. Strong distal pulses are noted. Full range of motion with no tenderness at the joints. Neurological: Alert, Oriented x3, Normal Strength, Normal Sensation Psychological: Normal affect Diagnostic/Tx/Re-eval - Medical Decision Making Patient was instructed to take aspirin use warm compresses to the right upper arm. He will return tomorrow for an ultrasound of the right upper extremity as he did present after hours for obtaining an ultrasound at this time. He will also be treated with Bactrim and Keflex for cellulitis. ED Disposition - Plan for ED Patient: Disposition: Home or Assisted Living Diagnosis: Superficial thrombophlebitis of arm, Cellulitis Instructions: ED Cellulitis, ED Phlebitis Superficial Prescriptions: Smz/Tmp Ds [Bactrim Ds] 1 tab PO BID #20 tab Prescription Printed Cephalexin [Keflex] 500 mg PO Q6 #40 cap Prescription Printed Referrals: Alexis Newby MD [Primary Care Provider] - 1 Week
[2020-07-10] MEDS: Smz/Tmp Ds Tablet 1 TABLET PO (22:58)
[2020-07-10] MEDS: Cephalexin 250 MG Capsule 500 MG PO (22:58)
--- NOTE | 2020-07-10 23:01 | ED.RN ---
INFORMED PT ON HOW TO F/U FOR OUTPATIENT DUPLEX. PT UNDERSTANDS. ALL QUESTIONS ANSWERED NO FURTHER CONCERNS.
== END 2020-07-10 23:02 | disposition home or self-care (01) ==
PROVIDERS: Emergency Provider Emergency Medicine; PCP Internal Medicine
DX: I80.8 Phlebitis and thrombophlebitis of other sites (principal); L03.113 Cellulitis of right upper limb; F17.200 Nicotine dependence, unspecified, uncomplicated
CPT/HCPCS: 99283

== ENCOUNTER → 2020-07-11 15:32 | Outpatient (CLI) | payer MEDICARE, MEDICAID, SELFPAY ==
[2020-07-10 21:53] VITALS: BMI 30.2
--- NOTE | 2020-07-11 15:37 | VDUE_ITS ---
Reason For Study: ARM SWELLING Right Proximal Left Proximal Right jugular vein is spontaneous, widely Left subclavian vein is spontaneous, widely patent, phasic, with no intraluminal patent, phasic, with no intraluminal echogenicity noted. echogenicity noted. Right subclavian vein is spontaneous, widely patent, phasic, with no intraluminal echogenicity noted. Right Lower Arm Right radial vein is compressible. Right ulnar vein is compressible. Right Arm Right axillary vein is spontaneous, patent, phasic, competent, compressible and demonstrates augmentation. Right brachial vein is compressible. Right cephalic vein is compressible. Right basilic vein is compressible. Interpretation Summary Deep veins of the right upper extremity are patent and compressible segmentally. There is no evidence of deep vein thrombosis. The superficial veins of the right upper extremity, the basilic and cephalic veins, are patent and compressible. There is no evidence of right upper extremity superficial thrombophlebitis involving the veins imaged. Ordering Physician: Rosangela Albright Referring Physician: Alexis Newby M.D. Performed By: Elicia Calhoun, LOR, RVT ?
== END ==
PROVIDERS: PCP Internal Medicine; Referring Provider Emergency Medicine; Visit Provider Emergency Medicine
DX: R22.31 Localized swelling, mass and lump, right upper limb (principal)
CPT/HCPCS: 93971

== ENCOUNTER 2021-06-04 04:12 | Emergency (ER) | payer MEDICARE, MEDICAID, SELFPAY ==
[2021-06-04 04:14] VITALS: BP 164/98; PULSE 89; RESP 16; TEMP 36.4; O2SAT 100; BMI 29.7
[2021-06-04 05:12] LABS: Absolute Lymphocyte Count 1.38 X10^3/uL (0.83-4.51); Absolute Neutrophil Count 2.4 X10^3/uL (2.0-7.7); Basophil# 0.03 X10^3/uL; Basophil% 0.7 % (0-1); Eosinophils% 2.3 % (0-5); Hematocrit 44.4 % (40-54); Hemoglobin 14.9 g/dL (13.0-16.5); Lymphocyte # 1.38 X10^3/ul (0.83-4.51); Lymphocyte % 32.4 % (19-41); Mean Corp Hgb Conc 33.6 g/dL (32-36); Mean Corpuscular Hgb 29.6 pg (27.0-32.0); Mean Corpuscular Volume 88.1 fL (80-94); Mean Platelet Vol. 9.8 fl (6.2-12.0); Monocyte# 0.31 X10^3/uL; Monocyte% 7.3 % (0-10); NRBC Flagged by Analyzer 0 % (0-5); Neutrophil # 2.43 X10^3/uL (2.7-7.7); Neutrophil % 57.1 % (47-70); Platelet Count 236 K/mm3 (150-450); RBC Distribution Width CV 12.1 % (11.6-14.6); RBC Distribution Width SD 38.9 fl (35.1-43.9); Red Blood Count 5.04 M/mm3 (4.6-6.2); White Blood Count 4.3 K/mm3 (4.4-11.0)
[2021-06-04] MEDS: Ketorolac 15 MG/ML Vial IV (05:12)
--- NOTE | 2021-06-04 05:26 | EX.ED.DYSGE1 ---
HPI History of Present Illness Chief Complaint: Headache Informant: patient Onset/Context/Timing Onset: Yesterday (0900) Context: Sudden Onset Timing: Intermittent (Patient states when his dog jumped on his lap he turned his head the pain resolved for a minute) Quality: Pain Location: Frontal and the right side of the head and neck Current Severity: Moderate Maximum Severity: Severe Worsened by: Nothing Relieved by: Nothing Associated Symptoms Associated Symptoms: Myalgias and arthralgias, shortness of breath, cough, mild congestion. Narrative Narrative: Patient 55-year-old male who is a smoker of 1/2 pack/day who presents with headache that started yesterday morning as previously described. He denies photophobia, double vision or blurred vision. He denies paresthesia, anesthesia or motor weeks. He does report right-sided neck pain. Denies ringing in his ears, decreased hearing or drainage from his ears. Does report mild nasal congestion. Reports mild sore throat. He does have a cough. He does endorse nausea, vomiting and diarrhea. He denies urologic symptoms. He has no other complaints Prior similar symptoms: Yes (When he was diagnosed with Covid last year) Recent Illness/Hospitalization: No PFSH PFS Medical History (Updated 06/04/21 @ 05:[address] Adam Silva MD) COVID-19 Hypertension Home Medications cyclobenzaprine 10 mg PO TID PRN #20 tablet 05/11/17 [Rx Last Taken 04/20/19 09:00] Bisoprl/Hctz 5 - 6.25 mg PO DAILY 04/20/19 [History Last Taken 04/20/19] duloxetine 30 mg PO DAILY 04/20/19 [History Last Taken 04/20/19] gabapentin 600 mg PO TID 04/20/19 [History Last Taken 04/20/19 09:00] omeprazole 20 mg PO DAILY 07/10/20 [History Last Taken Unknown] sildenafil (pulm.hypertension) 20 mg PO PRN PRN 07/10/20 [History Last Taken Unknown] Allergy/AdvReac Type Severity Reaction Status Date / Time No Known Allergies Allergy Verified 06/04/21 04:19 no surgical history Social History (Updated 06/04/21 @ 05:[address] Adam Silva MD) household members: none Smoking Status: Current every day smoker tobacco type: cigarettes alcohol intake: current alcohol intake frequency: a few times a week substance use type: marijuana ROS ROS ED Constitutional Constitutional ED: Denies chills, fever(s), subjective or sweats Eyes Eyes: Denies blurry vision, change in vision or diplopia ENT ENT ED: Reports rhinorrhea and sore throat; Denies ear pain Cardiovascular Cardiovascular: Denies chest pain, palpitations or paroxysmal nocturnal dyspnea Respiratory/Chest Respiratory/Chest: Reports cough, dyspnea and dyspnea on exertion; Denies paroxysmal nocturnal dyspnea or sputum Gastrointestinal Gastrointestinal: Reports abdominal pain, diarrhea, nausea and vomiting; Denies constipation or melena Genitourinary Genitourinary ED: Denies dysuria, hematuria or urinary frequency Musculoskeletal Musculoskeletal: Reports arthralgias and myalgias; Denies back pain or neck pain Integumentary Denies rash Neurologic Neurologic: Reports headache(s); Denies paresthesias or weakness Endocrine Endocrinology: Denies polydipsia, polyphagia or polyuria Allergic/Immunologic Allergic/Immunologic ED: Denies mouth swelling or urticaria EXAM Physical Exam Const Vital Signs: 06/04/21 04:14 Temperature 97.5 F L Temperature Source Oral Pulse Rate 89 Respiratory Rate 16 Blood Pressure 164/98 H Blood Pressure Mean 120 Pulse Ox 100 Oxygen Delivery Method Room Air Positive well nourished, well developed and unkempt General Appearance ED: unkempt, well developed and NAD HEENT HEENT Narrative: Head is atraumatic normocephalic. TMs are normal. Nares patent. Posterior pharynx out erythema exudate. There is no anterior Eyes PERRL and EOMs intact bilaterally Eyes Narrative: There is no photophobia. There is no APD. There is no scleral icterus. General Eye ED: Negative for pale conjunctiva or scleral icterus Neck supple and no JVD Neck Narrative: There is no meningeal findings. Chest Wall inspection of chest normal Resp normal respiratory effort and clear to auscultation bilaterally Cardio regular rate, regular rhythm, S1 normal heart sound, S2 normal heart sound and no murmurs GI normal to inspection, nondistended, normoactive bowel sounds, non-tender and non-distended Auscultation: normoactive bowel sounds Palpation: soft Back/Spine no CVA tenderness Thoracic Spine / Upper Back: Negative for paraspinal muscle tenderness Extremity normal to inspection General Extremety ED: Negative for edema or tenderness General Extremity: Negative for edema Neuro oriented x3, CN's II-XII intact bilaterally and no sensory deficits noted Sensorium / Orientation: alert Motor Exam: strength 5/5 throughout Psych mental status grossly normal Appearance: unkempt Skin no rashes or lesions noted, no wounds and skin turgor normal MDM MDM MDM Narrative Medical decision making narrative: Patient presents with viral-like symptoms. Since there is a 1 to 5% incidence of recurrence in patients who have had Covid will obtain Covid test. Chest x-ray to evaluate his shortness of breath and cough. White count to assess if patient is neutropenic which is just viral illness and rule out anemia. Patient's headache improved markedly with Toradol. Patient was informed of his results. He will be discharged to home. Lab Data Labs: Laboratory Results - last 24 hr 06/04/21 06/04/21 06/04/21 05:05 05:05 05:05 WBC 4.3 L RBC 5.04 Hgb 14.9 Hct 44.4 MCV 88.1 MCH 29.6 MCHC 33.6 RDW Std Deviation 38.9 RDW Coeff of Javier 12.1 Plt Count 236 MPV 9.8 Immature Gran % (Auto) 0.200 Neut % (Auto) 57.1 Lymph % (Auto) 32.4 [place] % (Auto) 7.3 Eos % (Auto) 2.3 Baso % (Auto) 0.7 Absolute Neuts (auto) 2.4 Absolute Lymphs (auto) 1.38 Nucleated RBC % 0 Sodium 137 Potassium 3.5 Chloride 104 Carbon Dioxide 26.0 Anion Gap 7 BUN 23 H Creatinine 0.93 Estim Creat Clear Calc 93.76 Est GFR (MDRD) Af Amer 108 Est GFR (MDRD) Non-Af 90 BUN/Creatinine Ratio 24.7 H Glucose 100 Lactic Acid 0.4 Calcium 8.7 Total Bilirubin 0.50 AST 47 H ALT 92 H Alkaline Phosphatase 109 Total Protein 7.4 Albumin 3.4 Globulin 4.0 Albumin/Globulin Ratio 0.8 L Radiography Chest X-Ray - ED: 1 View, Read by ED Physician ([id number]), Normal, Heart, Mediastinum, Bony Structures, No Acute Disease and Chronic Changes (Minimal chronic changes due to smoking.) Discharge Plan Triage Chief Complaint: Headache ED Provider: Adam Silva Dx/Rx/DC Orders Clinical Impression: Systemic viral illness, Neutropenia due to infection, Viral cephalgia Instructions: ED Viral Syndrome (Adult) Prescriptions: No Action cyclobenzaprine 10 MG tablet 10 mg PO TID PRN (Reason: Muscle Spasm) Qty: 20 RF: 0 gabapentin 300 MG capsule 600 mg PO TID RF: 0 duloxetine 30 MG capsule 30 mg PO DAILY RF: 0 Bisoprl/Hctz 5 - 6.25 mg PO DAILY RF: 0 sildenafil (pulm.hypertension) 20 MG tablet 20 mg PO PRN PRN (Reason: erectile dysfunction) RF: 0 omeprazole 20 MG tablet,disintegrat, delay rel 20 mg PO DAILY RF: 0 Primary Care Provider: Alexis Newby Referrals: Alexis Newby MD [Primary Care Provider] - 1 Week if not improving Disposition Disposition: Home, Self Care
[2021-06-04 05:37] LABS: ALB/GLOB Ratio 0.8 RATIO (0.9-2.4); AST(SGOT) 47 U/L (15-37); Alanine Aminotransfer ALT/SGPT 92 U/L (16-61); Albumin, Serum 3.4 g/dL (3.2-5.0); Alkaline Phosphatase 109 U/L (45-117); Anion Gap 7 (5-15); BUN 23 mg/dL (7-18); BUN/Creat Ratio 24.7 RATIO (10-20); Calcium,Total 8.7 mg/dL (8.5-10.1); Chloride 104 mmol/L (98-107); Creatinine, Serum 0.93 mg/dL (0.70-1.30); EST Glomerular Filtration Rate 90 mL/min (>60); Est Glom Filt Rate - Afr Amer 108 mL/min (>60); Estimated Creatinine Clearance 93.76 ml/min; Glucose 100 mg/dL (74-106); Lactic Acid 0.4 mmol/L (0.4-1.9); Potassium 3.5 mmol/L (3.5-5.1); Protein, Total 7.4 g/dL (6.4-8.2); Sodium Level 137 mmol/L (136-145)
--- NOTE | 2021-06-04 05:40 | RAD_ITS ---
STUDY: X-RAY CHEST REASON FOR EXAM: Male, 55 years old. Cough TECHNIQUE: Single AP portable view of the chest. COMPARISON: None. FINDINGS: The lungs are clear and expanded. There is no demonstrated pleural abnormality. Normal size heart. Normal mediastinum and lanre. Normal visualized pulmonary arteries. Normal visualized aortic arch and descending thoracic aorta. Normal visualized thoracic spine. Normal visualized ribs, clavicles, and shoulders. There is no demonstrated abnormality of the visualized soft tissue structures of the upper abdomen. RAD/Chest 1 View (Portable) IMPRESSION: Normal x-ray examination of the chest. Electronically Signed: Silvina Aburto MD at 6:47 EDT Tel , Service support ,
[2021-06-04] MEDS: HYDROcodone Bitartrate/Apap 5/325 Tablet PO (06:07)
[2021-06-04 06:09] VITALS: BP 167/90; PULSE 77; RESP 18; O2SAT 96
== END 2021-06-04 06:10 | disposition home or self-care (01) ==
PROVIDERS: Emergency Provider Emergency Medicine; PCP Internal Medicine
DX: B34.9 Viral infection, unspecified (principal); D70.3 Neutropenia due to infection; R51.9 Headache, unspecified; F17.210 Nicotine dependence, cigarettes, uncomplicated; Z86.16 Personal history of COVID-19; Z79.899 Other long term (current) drug therapy
CPT/HCPCS: 71045; 80053; 83605; 85025; 87040; 87426; 96374; 99285